=== PATIENT | female | born 1995 | race African-American/Black ===

== ENCOUNTER 2017-10-14 20:33 | Emergency (ER) | payer SELFPAY ==
[~2017-10-14] VITALS: Ht 157.5 cm; Wt 77.0 kg
[~2017-10-14 20:33] MED LIST: LAMO25TA71 PO; RISP0.5T19 PO
[2017-10-14] MEDS ORDERED: SODIUM CHLORIDE 0.9% 1,000 ML IV ONE (23:16)
[2017-10-15 00:31] LABS: BASOPHILS % 0.7 % (0.0-2.0); EOSINOPHILS % 0.7 % (0.0-5.0); HEMATOCRIT. 39.6 % (36.0-48.0); HEMOGLOBIN. 13.3 g/dL (12.0-16.0); LYMPHOCYTES % 39.8 % (20.0-50.0); MEAN CORPUSCULAR HEMOGLOBIN 28.2 pg (28.0-32.0); MEAN PLATELET VOLUME 7.4 fl (7.4-10.4); MONOCYTES % 7.5 % (2.0-8.0); NEUTROPHILS % 51.3 % (40.0-76.0); PLATELET 247 x1000/uL (130-400); RED BLOOD CELL COUNT 4.72 mill/uL (4.2-5.4); RED CELL DISTRIBUTION WIDTH 14.6 % (11.6-14.6)
[2017-10-15 00:36] LABS: CHLORIDE 109 mEq/L (98-107)
[2017-10-15 00:48] LABS: ETHANOL BLOOD < 10 mg/dL
[2017-10-15 01:17] LABS: HCG SCREEN NEGATIVE
[2017-10-15 12:34] LABS: CLARITY URINE CLOUDY (CLEAR); COLOR URINE YELLOW (YELLOW); KETONES URINE NEGATIVE (NEGATIVE); LEUKOCYTE ESTERASE URINE NEGATIVE (NEGATIVE); NITRITE URINE NEGATIVE (NEGATIVE); OCCULT BLOOD URINE NEGATIVE (NEGATIVE); PROTEIN URINE NEGATIVE (NEGATIVE); SPECIFIC GRAVITY URINE 1.023 (1.005-1.030); UROBILINOGEN URINE 0.2 E.U./dL (0.2-1.0)
[2017-10-15 12:51] LABS: *AMPHETAMINES SCREEN URINE NEGATIVE (NEGATIVE); *BARBITURATES SCREEN URINE NEGATIVE (NEGATIVE); *BENZODIAZEPINES SCREEN URINE NEGATIVE (NEGATIVE); *COCAINE SCREEN URINE NEGATIVE (NEGATIVE)
[2017-10-15 12:52] LABS: METHADONE URINE SCREEN NEGATIVE (NEGATIVE); OPIATES URINE SCREEN NEGATIVE (NEGATIVE); PHENCYCLIDINE URINE SCREEN NEGATIVE (NEGATIVE)
[2017-10-15 13:11] LABS: CANNABINOID URINE SCREEN PRESUMTIVE POSITIVE (NEGATIVE)
[2017-10-15 13:37] VITALS: BP 128/75
== END 2017-10-15 13:40 | disposition home or self-care (01) ==
LOC: ER 20:33
DX: T43.221A Poisoning by selective serotonin reuptake inhibitors, accidental (unintentional), initial encounter (principal); R45.851 Suicidal ideations; F32.9 Major depressive disorder, single episode, unspecified; Z79.899 Other long term (current) drug therapy; Y92.89 Other specified places as the place of occurrence of the external cause
CPT/HCPCS: 36415; 80053; 80305; 80307; 80329; 81003; 81025; 83735; 84703; 85025; 93005; 99285; G0482; J7030; Z7610

== ENCOUNTER 2018-12-27 05:29 | Emergency (ER) | payer OTHER ==
[~2018-12-27] VITALS: Ht 172.7 cm; Wt 78.0 kg
[2018-12-27] MEDS ORDERED: SODIUM CHLORIDE 0.9% 1,000 ML IV ONE (06:56)
[2018-12-27] MEDS ORDERED: ONDANSETRON HCL 4MG/2ML INJ IV STA (06:56)
[2018-12-27] MEDS ORDERED: HYDROCODONE/ACETAMINOPHEN 5/325MG TABLET PO STA (06:56)
[2018-12-27 07:30] LABS: BASOPHILS % 0.7 % (0.0-2.0); EOSINOPHILS % 3.8 % (0.0-5.0); HEMATOCRIT. 40.3 % (36.0-48.0); HEMOGLOBIN. 13.2 g/dL (12.0-16.0); LYMPHOCYTES % 39.3 % (20.0-50.0); MEAN CORPUSCULAR VOLUME 85.4 fL (81.0-99.0); MEAN PLATELET VOLUME 7.5 fl (7.4-10.4); MONOCYTES % 6.5 % (2.0-8.0); NEUTROPHILS % 49.7 % (40.0-76.0); PLATELET 203 x1000/uL (130-400); RED BLOOD CELL COUNT 4.71 mill/uL (4.2-5.4); RED CELL DISTRIBUTION WIDTH 15.4 % (11.6-14.6)
[2018-12-27 07:36] LABS: CHLORIDE 110 mEq/L (98-107)
[2018-12-27 07:37] LABS: PROTHROMBIN TIME 10.1 sec (9.6-11.0)
[2018-12-27 07:53] LABS: CLARITY URINE CLEAR (CLEAR); COLOR URINE YELLOW (YELLOW); KETONES URINE NEGATIVE (NEGATIVE); LEUKOCYTE ESTERASE URINE NEGATIVE (NEGATIVE); NITRITE URINE NEGATIVE (NEGATIVE); OCCULT BLOOD URINE TRACE (NEGATIVE); PH URINE 6.5 (4.5-8.0); PROTEIN URINE NEGATIVE (NEGATIVE); SPECIFIC GRAVITY URINE 1.009 (1.005-1.030); UROBILINOGEN URINE 0.2 E.U./dL (0.2-1.0)
[2018-12-27 08:50] VITALS: BP 119/82
== END 2018-12-27 11:38 | disposition home or self-care (01) ==
LOC: ER 05:29
DX: R10.30 Lower abdominal pain, unspecified (principal); M25.571 Pain in right ankle and joints of right foot; R11.2 Nausea with vomiting, unspecified; F32.9 Major depressive disorder, single episode, unspecified; R42 Dizziness and giddiness; Z79.899 Other long term (current) drug therapy
CPT/HCPCS: 36415; 70450; 73610; 80053; 81003; 81025; 83690; 85025; 85610; 96361; 96374; 99284; J2405; J7030

== ENCOUNTER 2020-02-17 03:23 | Emergency (ER) | payer MEDICAID, OTHER ==
[~2020-02-17] VITALS: Ht 157.5 cm; Wt 100.0 kg
[2020-02-17] MEDS ORDERED: AZITHROMYCIN 500 MG TABLET PO ONE (03:45)
[2020-02-17] MEDS ORDERED: CEFTRIAXONE SODIUM 250 MG/VIAL IM ONE (03:45)
[2020-02-17 04:14] LABS: CLARITY URINE CLOUDY (CLEAR); COLOR URINE YELLOW (YELLOW); KETONES URINE 1+ (NEGATIVE); LEUKOCYTE ESTERASE URINE 2+ (NEGATIVE); NITRITE URINE POSITIVE (NEGATIVE); OCCULT BLOOD URINE 2+ (NEGATIVE); PH URINE 5.5 (4.5-8.0); PROTEIN URINE 1+ (NEGATIVE); SPECIFIC GRAVITY URINE 1.031 (1.005-1.030)
[2020-02-17 04:24] LABS: *BARBITURATES SCREEN URINE NEGATIVE (NEGATIVE); *BENZODIAZEPINES SCREEN URINE NEGATIVE (NEGATIVE)
[2020-02-17 04:25] LABS: *COCAINE SCREEN URINE NEGATIVE (NEGATIVE); METHADONE URINE SCREEN NEGATIVE (NEGATIVE); OPIATES URINE SCREEN NEGATIVE (NEGATIVE); PHENCYCLIDINE URINE SCREEN NEGATIVE (NEGATIVE)
[2020-02-17 04:27] LABS: *AMPHETAMINES SCREEN URINE PRESUMTIVE POSITIVE (NEGATIVE); CANNABINOID URINE SCREEN PRESUMTIVE POSITIVE (NEGATIVE)
[2020-02-17 05:31] LABS: BASOPHILS % 0.7 % (0.0-2.0); EOSINOPHILS % 1.2 % (0.0-5.0); HEMATOCRIT. 40.7 % (36.0-48.0); HEMOGLOBIN. 13.1 g/dL (12.0-16.0); LYMPHOCYTES % 22.9 % (20.0-50.0); MEAN CORPUSCULAR HEMOGLOBIN 26.8 pg (28.0-32.0); MEAN CORPUSCULAR VOLUME 83.3 fL (81.0-99.0); MEAN PLATELET VOLUME 7.2 fl (7.4-10.4); MONOCYTES % 5.2 % (2.0-8.0); PLATELET 268 x1000/uL (130-400); RED BLOOD CELL COUNT 4.88 mill/uL (4.2-5.4); RED CELL DISTRIBUTION WIDTH 14.8 % (11.6-14.6)
[2020-02-17 05:41] LABS: CHLORIDE 107 mEq/L (98-107)
[2020-02-17 05:47] LABS: ETHANOL BLOOD < 10 mg/dL
[2020-02-17] MEDS ORDERED: NITROFURANTOIN MACROCRYSTAL 25MG CAPSULE PO SCH (06:15)
[2020-02-17 06:47] LABS: HCG SCREEN NEGATIVE
[2020-02-17] MEDS ORDERED: NITROFURANTOIN 100MG M/M CAPSULE PO SCH ×2 (09:45→21:00)
[2020-02-19] MEDS: NITROFURANTOIN 100MG M/M CAPSULE PO SCH ×2 (12:46→17:00)
[2020-02-19] MEDS: QUETIAPINE FUMARATE 50MG TABLET PO SCH ×2 (13:30→17:00)
[2020-02-19] MEDS ORDERED: CITALOPRAM HYDROBROMIDE 10MG TABLET PO SCH (13:30)
[2020-02-19] MEDS ORDERED: QUETIAPINE FUMARATE 50MG TABLET PO SCH (21:00)
[2020-02-20 04:07] LABS: HIV SCREEN 4G Non Reactive (Non Reactive)
[2020-02-20 08:50] VITALS: BP 112/68
== END 2020-02-20 08:45 | disposition home or self-care (01) ==
LOC: ER 03:23
DX: U07.1 COVID-19 (principal); F32.3 Major depressive disorder, single episode, severe with psychotic features; R45.851 Suicidal ideations; I49.9 Cardiac arrhythmia, unspecified; Z73.6 Limitation of activities due to disability; Z59.0 Homelessness
CPT/HCPCS: 36415; 71045; 80053; 80305; 80307; 80320; 80329; 81003; 84703; 85025; 87077; 87086; 87186; 87389; 93005; 96372; 99285; C9803; J0696; U0003; Z7610; G0480